=== PATIENT | female | born 1980 | race Caucasian/White ===

== ENCOUNTER 2018-12-16 05:55 | Day surgery (SDC) | payer OTHER ==
[2018-12-10 13:04] VITALS: BMI 31.5
[2018-12-16] MEDS ORDERED: MIDAZOLAM HCL 2 MG/2 ML SINGLE DOSE VIAL ONE ×2 (07:42→13:29)
[2018-12-16] MEDS ORDERED: SUCCINYLCHOLINE CHLORIDE 200 MG/10 ML VIAL ONE (07:42)
[2018-12-16] MEDS ORDERED: fentaNYL CITRATE 250 MCG/5 ML VIAL ONE (07:42)
[2018-12-16] MEDS ORDERED: ROCURONIUM BROMIDE 50 MG/5 ML VIAL ONE ×2 (07:42→09:17)
[2018-12-16] MEDS ORDERED: PROPOFOL 20 ML ONE ×4 (07:42→11:08)
[2018-12-16] MEDS ORDERED: LIDOCAINE HCL 2% JELLY (5 ML/TUBE) ONE (07:43)
[2018-12-16] MEDS ORDERED: LIDOCAINE HCL/PF 2% SDV 5ML VIAL ONE (07:43)
[2018-12-16] MEDS ORDERED: DEXAMETHASONE SOD PHOSPHATE 4 MG/1 ML VIAL ONE (11:38)
[2018-12-16] MEDS ORDERED: ceFAZolin SODIUM 1 GM VIAL ONE (11:38)
[2018-12-16] MEDS ORDERED: ONDANSETRON 4 MG/2 ML VIAL ONE ×2 (11:38→13:15)
[2018-12-16] MEDS ORDERED: GLYCOPYRROLATE 0.2 MG/1 ML VIAL ONE (11:46)
[2018-12-16] MEDS ORDERED: NEOSTIGMINE METHYLSULFATE 0.5 MG/ML - 10 ML MDV ONE ×2 (11:46→13:56)
[2018-12-16] MEDS ORDERED: PROMETHAZINE HCL 25 MG/1 ML VIAL IVPUSH PRN (12:19)
[2018-12-16] MEDS ORDERED: oxyCODONE HCL 5 MG TABLET PO PRN ×3 (12:19→12:52)
[2018-12-16] MEDS ORDERED: ONDANSETRON 4 MG/2 ML VIAL IVPUSH PRN (12:19)
[2018-12-16] MEDS ORDERED: ONDANSETRON 4 MG/2 ML VIAL IVPB PRN (12:52)
--- NOTE | 2018-12-16 12:56 | OP ---
Operative Note - Note: Operative Date: 12/16/18 Pre-Operative Diagnosis: mastodynia Operation: bilateral reduction mammoplasty Post-Operative Diagnosis: Same as Pre-op Surgeon: René Sigala Grey Inspector: Du Najera Anesthesia: General Operative Report Dictated: Yes
--- NOTE | 2018-12-16 12:57 | PN ---
Progress Note (short form) - Note Progress Note: post-op check. No collections, appropriate pain, NV in tact, counseled on HIV HEP consent as I suffered a needle stick. Patient consents. OK for discharge once meets criteria.
[2018-12-16] MEDS ORDERED: LACTATED RINGERS SOLUTION 1,000 ML IV SCH (13:00)
--- NOTE | 2018-12-16 13:16 | SURG ---
Surgery Head Irrigator Note Head Irrigator: Du Najera PA-C Date of Service: 12/16/18 Diagnosis: mastodynia Procedure: bilateral reduction mammoplasty I was present for the entirety of the operative procedure. For further detail, please refer to operative report. Visit type - Case Type Case Type: Scheduled - New patient This patient is new to me today: Yes Date on this admission: 12/16/18
[2018-12-16] MEDS: oxyCODONE HCL 5 MG TABLET PO PRN ×2 (14:10→14:40)
[2018-12-16] MEDS ORDERED: oxyCODONE HCL 5 MG TABLET ONE ×2 (14:11→14:43)
[2018-12-16 14:27] VITALS: TEMP 98.2
[2018-12-16 16:16] VITALS: BP 136/76; PULSE 82
--- NOTE | 2018-12-17 12:22 | OP ---
DATE OF OPERATION: 12/16/2018 TITLE OF PROCEDURE: Bilateral reduction mammoplasty. PREOPERATIVE DIAGNOSIS: Bilateral symptomatic macromastia. POSTOPERATIVE DIAGNOSIS: Bilateral symptomatic macromastia. ATTENDING SURGEON: René Sigala MD TRUCK HOPPER: ISSAC Jackson DESCRIPTION OF PROCEDURE: The patient was seen in the holding area. All risks, benefits, and alternatives, as well as limitations of the procedure were discussed, understood, and she agreed to proceed. Patient was marked in a standing position, awake and aware of all incisions and resulting scars. The nipples were sighted at 23 cm from the sternal notch bilaterally. Modified Jason pattern was planned, a medial pedicle was planned. Patient was given 1 g of Ancef preoperatively. Sequential compression stockings and BECKI hose were applied prior to the operating room, brought to the operating room, placed in the supine position. The position was carefully checked by surgical and anesthesia teams. After anesthesia was given, a Heath catheter was placed to be removed at the end of the procedure. Patient was then prepped and draped in standard surgical fashion. Time-out was called. Patient, procedure, side, and sites were verified. The nipples were traced with 45-mm cookie-cutter. An 11-cm width pedicle was then traced with the breasts in the tourniquet. The pedicle was deepithelialized. The superior and lateral skin flaps were then elevated. Attention was directed towards the right breast at the level of the chest wall. Pedicle was then developed leaving all perforating blood vessels from the pectoralis major muscle to the pedicle. Nipples were pink and viable with good surrounding dermal bleeding. After pedicle elevation, pedicles then rotated in the keyhole pattern. The skin was tailor-tacked with neo and a half-buried mattress 2-0 nylon suture to the inverted T point. Attention was then directed towards the left side, where a mirror image procedure was performed. At this point, the resection weights are of the left breast were 932 g and the right breast 869 g, which was the slightly smaller breast to begin with. The patient was brought to a seated upright position, where there is excellent symmetry of shape and size. Nipple position was good. Nipples appear viable. Closure was performed with again a half-buried mattress 2-0 nylon suture at the inverted T-point. The remainder of incisions was closed with a series of interrupted buried deep dermal 3-0 Monocryl suture followed by a running subcuticular 4-0 Monocryl suture. Size 10 flat MIRA drains were brought in through the lateral extent of the incision, secured with 2-0 silk drain suture. The patient was dressed with a surgical bra, 4x4 gauze, Steri-Strips. She was awoken from anesthesia and transferred to recovery without complication. Titus [id number]
[2018-12-17 14:08] LABS: HBsAG SCREEN NEGATIVE
--- NOTE | 2018-12-18 09:54 | PATH ---
Surgical Pathology Report Patient Name: GEORGIA RAE [facility]. Rec. #: [id number] /Age/Gender: 1980 (Age: 37) / F Account: [id number] Location: [facility] AMBULATORY Taken: 12/16/2018 Received: 12/16/2018 Reported: 12/18/2018 Physicians: René Sigala Specimen(s) Received A: RIGHT BREAST TISSUE B: LEFT BREAST TISSUE Clinical History Symptomatic macromastia Final Diagnosis A. RIGHT BREAST TISSUE, EXCISION: BENIGN BREAST TISSUE WITH APOCRINE METAPLASIA, MICROCYST, AND STROMAL FIBROSIS. SKIN WITH NO SIGNIFICANT PATHOLOGIC CHANGES. B. LEFT BREAST TISSUE, EXCISION: BENIGN BREAST TISSUE WITH FIBROADENOMATOID CHANGE, APOCRINE METAPLASIA, MICROCYST, AND STROMAL FIBROSIS. SKIN WITH NO SIGNIFICANT PATHOLOGIC CHANGES. Electronically Signed Martita Craft M.D. Gross Description A. Received in formalin labeled "right breast tissue," is a 928 g, 30.0 x 20.0 x 4.0 cm unoriented portion of fibroadipose tissue which is surfaced by dang, unremarkable skin. There is additional dang, unremarkable skin separately received within the same container. Sectioning reveals foci of dense white fibrous tissue. Character Actress sections are submitted in 3 cassettes. B. Received in formalin labeled "left breast tissue," is a 1024 g, 30.0 x 10.5 x 4.0 cm aggregate of multiple unoriented portions of fibroadipose tissue and dang, unremarkable skin. Sectioning reveals multifocal dense white fibrous tissue. Character Actress sections are submitted in 3 cassettes. /12/16/2018 saudi/12/16/2018
== END 2018-12-16 16:19 | disposition home or self-care (01) ==
LOC: FASU 05:55
PROVIDERS: ATTEND Plastic Surgery
PROC: 0HBV0ZZ Excision of Bilateral Breast, Open Approach (ICD-10-PCS; principal; 2018-12-16 08:33)
DX: N62 Hypertrophy of breast (principal)
CPT/HCPCS: 36415; 81025; 84460; 86803; 87340; 87389; 88305-TC; 94760

== ENCOUNTER 2019-06-30 18:25 | Emergency (ER) | payer OTHER ==
[2019-06-30] MEDS ORDERED: DIPHTH,PERTUSS(ACELL),TET 0.5 ML DISP.SYRIN IM ONE ×2 (18:40→18:53)
--- NOTE | 2019-06-30 18:41 | PDOC ---
Rapid Medical Evaluation Chief Complaint: Laceration Time Seen by Provider: 06/30/19 18:40 Medical Evaluation: Allergies Allergy/AdvReac Type Severity Reaction Status Date / Time No Known Allergies Allergy Verified 03/20/16 21:11 Vital Signs Temp Pulse Resp BP Pulse Ox 98.5 F 77 18 132/70 100 06/30/19 18:32 06/30/19 18:32 06/30/19 18:32 06/30/19 18:32 06/30/19 18:32 06/30/19 18:40 I have performed a brief in-person evaluation of this patient. The patient presents with a chief complaint of:third finger laceration Pertinent physical exam findings: 1cm lac to distal tip of right 3rd digit , no nail lac I have ordered the following: Boostrix The patient will proceed to the ED for further evaluation. 06/30/19 18:36 Discharge Disposition - Discharge Dispostion Condition at time of disposition: Stable - Referrals - Patient Instructions - Post Discharge Activity
[2019-06-30 18:42] VITALS: BP 132/70; PULSE 77; TEMP 98.5; BMI 27.4
--- NOTE | 2019-06-30 19:02 | PDOC ---
History of Present Illness - General Chief Complaint: Laceration Stated Complaint: LACERATION Time Seen by Provider: 06/30/19 18:40 - History of Present Illness Initial Comments: 06/30/19 18:59 38-year-old female not current on tetanus presents for laceration on her right middle finger while handling a gas blender Past History - Past Medical History Allergies/Adverse Reactions: Allergies Allergy/AdvReac Type Severity Reaction Status Date / Time No Known Allergies Allergy Verified 06/30/19 18:50 Home Medications: Ambulatory Orders metFORMIN HCL [Metformin HCl] 500 mg PO BID 03/20/16 Anemia: No Asthma: No Cancer: No Cardiac Disorders: No CVA: No COPD: No CHF: No Dementia: No Diabetes: No GI Disorders: No Disorders: No HTN: No Hypercholesterolemia: Yes Liver Disease: No Seizures: No Thyroid Disease: No - Surgical History Abdominal Surgery: No Appendectomy: No Cardiac Surgery: No Cholecystectomy: No Lung Surgery: No Neurologic Surgery: No Orthopedic Surgery: No - Immunization History Immunization Up to Date: No - Psycho Social/Smoking Cessation Hx Smoking History: Never smoked Have you smoked in the past 12 months: No Information on smoking cessation initiated: No Hx Alcohol Use: No Drug/Substance Use Hx: No Substance Use Type: None Review of Systems - Review of Systems Musculoskeletal: Yes: See HPI *Physical Exam - Vital Signs Last Vital Signs Temp Pulse Resp BP Pulse Ox 98.5 F 77 18 132/70 100 06/30/19 18:32 06/30/19 18:32 06/30/19 18:32 06/30/19 18:32 06/30/19 18:32 - Physical Exam Comments: 06/30/19 18:59 There is a superficial vertical oriented laceration at the tip of the right middle finger there is no subcutaneous fat exposed there are no gross recent sensorimotor deficits neurovascular intact. ED Treatment Course - Medications Given in the ED: ED Medications Discontinued Medications Generic Name Dose Route Start Last Admin Trade Name Freq PRN Reason Stop Dose Admin Diphtheria/Tetanus/Acell Pertussis 0.5 ml 06/30/19 18:40 06/30/19 18:55 Boostrix - IM 06/30/19 18:41 0.5 ml ONCE ONE Administration Medical Decision Making - Medical Decision Making 06/30/19 19:00 The edges were easily approximated with one Steri-Strip held in place with tincture of benzoin circumferential loosely placed Steri-Strip at the proximal edges of the Steri-Strip which was approximating the wound this was tolerated well Discharge - Discharge Information Problems reviewed: Yes Clinical Impression/Diagnosis: Finger laceration Condition: Stable Disposition: HOME - Admission No - Follow up/Referral Referrals: Jorge Sarabia MD [Primary Care Provider] - Darien Ocoha MD [Staff Physician] - - Patient Discharge Instructions Additional Instructions: Return to the emergency room for worsening symptoms. Please follow-up with orthopedic hand surgery in 1 to 2 days for a wound check. Please leave the Steri-Strips in place. For the next 48 hours keep the area clean and dry do not wash it after 48 hours you may wash the area with soap and water. The Steri- Strips days in place until it falls off. Leave the area open to air as much as possible if you must work you please wear a rubber glove and come out of the glove frequently to let the skin air out - Post Discharge Activity
== END 2019-06-30 19:20 | disposition home or self-care (01) ==
LOC: JERFT 18:25
PROC: 3E0234Z Introduction of Serum, Toxoid and Vaccine into Muscle, Percutaneous Approach (ICD-10-PCS; principal; 2019-06-30)
DX: S61.212A Laceration without foreign body of right middle finger without damage to nail, initial encounter (principal); W29.0XXA Contact with powered kitchen appliance, initial encounter; Y93.89 Activity, other specified; Y92.038 Other place in apartment as the place of occurrence of the external cause; Y99.8 Other external cause status
CPT/HCPCS: 90471; 90715; 99281-25